=== PATIENT | male | born 1945 | race Caucasian/White ===

== ENCOUNTER 2021-03-23 20:24 | Emergency (ER) | payer MEDICARE, OTHER, SELFPAY ==
[2021-03-23 20:30] VITALS: BP 149/78; PULSE 77; RESP 18; TEMP 36.8; O2SAT 100
[2021-03-23] MEDS: diazePAM 5 MG TABLET PO (20:49)
[2021-03-23] MEDS: KETOROLAC 30 MG/ML VIAL IM (20:49)
--- NOTE | 2021-03-23 22:29 | ED_ITS ---
HPI - Back Pain/Injury General Chief Complaint: Back Pain/Injury Stated Complaint: back pain Time Seen by Provider: 03/23/21 20:41 Source: patient History of Present Illness HPI Narrative: 75-year-old gentleman with a history of glaucoma as his only significant medical issue presents with an acute exacerbation of his chronic back pain. He has had intermittent issues with his back since 1991 and has found ways to very efficiently avert acute exacerbations and has a daily routine to make sure that his back stays as flexible and pain-free as possible. He notes that about a week ago he was playing pickleball stretched and turned the wrong way and felt a twinge of pain low back right side that was a bit more lateral than he usually experiences. The same area has progressively gotten worse in terms of pain and at this point he is having episodes of pain that he describes as the worst that he has ever experienced and at times is severe enough that he has been actually unable to get out of bed. He describes no fevers, cough, chills. He has had no change to bowel or bladder habits. No abdominal pain no hematuria or dysuria. No history of IV drug use no history of recent spinal injections. He has had regular spinal imaging within the last year that has not suggested any significant metastatic or pathologic disease. He describes no rashes and does not have specific point tenderness over the lumbar spine. Related Data Home Medications Medication Instructions Recorded Confirmed ASPIRIN (Aspirin EC) 81 mg PO Q DAY #0 02/09/11 latanoprost 0.005 % eye drops 1 drp OPHTH Q DAY #0 02/09/11 (Xalatan) TIMOLOL MALEATE 1 drp OPHTH QDAY #0 05/03/11 Previous Rx's Medication Instructions Recorded diazepam 5 mg tablet 5 mg PO BID PRN #10 tab 03/23/21 oxycodone-acetaminophen 5 mg-325 1 tab PO Q6H PRN #12 tab 03/23/21 mg tablet Allergies Allergy/AdvReac Type Severity Reaction Status Date / Time No Known Drug Allergies Allergy Verified 03/23/21 21:11 Review of Systems Review of Systems Narrative: Remainder of complete review of systems is otherwise unremarkable except for that included in the HPI. Exam Narrative Exam Narrative: General: Alert appropriate in no acute distress Respiratory: Able to speak in full sentences, no obvious respiratory distress Skin: No obvious rashes, warm and dry Neurologic: Grossly intact no obvious asymmetries or abnormalities Psych: appropriate insight and affect, cooperative Spine: No skin changes, no point tenderness over lower thoracic or lumbar spine. No significant paraspinous muscle spasm. No flank pain. Initial Vital Signs Initial Vital Signs: Vital Signs Temperature 98.2 F 03/23/21 20:30 Pulse Rate 77 03/23/21 20:30 Respiratory Rate 18 03/23/21 20:30 Blood Pressure 149/78 H 03/23/21 20:30 Pulse Oximetry 100 03/23/21 20:30 Course Orders Ordered: Discontinued Medications Diazepam (Diazepam 5 Mg Tablet) 5 mg PO NOW ONE Stop: 03/23/21 20:42 Last Admin: 03/23/21 20:49 Dose: 5 mg Documented by: LINNEA Ketorolac Tromethamine (Ketorolac 30 Mg/Ml Vial) 30 mg IM NOW ONE Stop: 03/23/21 20:42 Last Admin: 03/23/21 20:49 Dose: 30 mg Documented by: LINNEA Oxycodone/Acetaminophen (Oxycodone/Apap 5/325 Prepack) 1 bottle MISC SEEINSTR ONE Stop: 03/23/21 22:43 Vital Signs Vital signs: Vital Signs - 8 hr 03/23/21 20:30 Temperature 98.2 F Pulse Rate 77 Respiratory Rate 18 Blood Pressure 149/78 H Pulse Oximetry 100 MDM - Back Pain/Injury MDM Narrative Medical decision making narrative: 75-year-old gentleman presents with acute musculoskeletal back pain without any ?red flags? for more significant pathology that would require any type of imaging at this time. He has found that Mobic and Robaxin have not been effective in controlling his pain. He received IM Toradol and oral diazepam in the emergency department with significant relief of his pain. At this time will have him continue with the Tylenol and Mobic as baseline pain control Valium is added as a muscle relaxant in the evening with instructions to discontinue his Robaxin as it has been ineffective. In the morning and early day if he wants to add Percocet for severe pain control he certainly can. We reviewed constipating side effects of this. Did recommend that he not mix the diazepam and Percocet as this can cause respiratory depression. Questions are answered patient is feeling significantly better is able to easily stand from the wheelchair and walk from the Department with minimal antalgic gait. He is safe for home discharge Discharge Plan Departure Patient Disposition: Home Clinical Impression: Musculoskeletal back pain Instructions: DI for Back Strain or Sprain Activity Restrictions/Additional Instructions: Thank you for coming in today I am sorry this back pain has been so debilitating. Fortunately, there are no concerning ?red flags? to suggest severe pathology. I suspect that this is simply pulled muscles and you will improve. Please continue the Tylenol as you are currently taking Use the Mobic as recently prescribed, this is a nonsteroidals pain medication Please discontinue the Robaxin. This is a muscle relaxer that does not seem to be effective for you I am going to give you a prescription for diazepam/Valium which is also a muscle relaxer and does seem to be more effective. This may be most effective for you in the evenings to help you sleep For pain beyond anything controlled by all of the above, you can use Percocet. It can mix with your current doses of Mobic and Tylenol. Please do not take Percocet within 3-4 hours of diazepam. The combination taken at the same time can cause you to stop breathing. If you have worsening pain, numbness or weakness, developed fevers or new or concerning symptoms, please feel free to return to the ER and I am happy to re- evaluate Prescriptions: New oxycodone-acetaminophen 5-325 mg tablet 1 tab PO Q6H PRN (Reason: pain) Qty: 12 RF: 0 diazepam 5 mg tablet 5 mg PO BID PRN (Reason: muscle spasm) Qty: 10 RF: 0 No Action latanoprost [Xalatan] 0.005 % drops 1 drp OPHTH Q DAY Qty: 0 RF: 0 ASPIRIN (Aspirin EC) 81 mg PO Q DAY Qty: 0 RF: 0 TIMOLOL MALEATE 1 drp OPHTH QDAY Qty: 0 RF: 0 Referrals: Александр Hidalgo MD [Primary Care Provider] -
[2021-03-23 22:54] VITALS: BP 136/70; PULSE 63; RESP 16; O2SAT 97
[2021-03-23] MEDS: OXYCODONE/APAP 5/325 PREPACK 1 BOTTLE MISC (22:54)
== END 2021-03-23 22:56 | disposition home or self-care (01) ==
PROVIDERS: Emergency Provider Emergency Medicine; PCP Family Medicine
DX: M54.5 Low back pain (principal)
CPT/HCPCS: 96372; 99283; J1885

== ENCOUNTER → 2022-02-25 08:34 | Outpatient (CLI) | payer MEDICARE, OTHER, SELFPAY ==
--- NOTE | 2022-02-25 | DI.MRI.S_ITS ---
PROCEDURE: MR LUMBAR SPINE WO CON INDICATIONS: Radiculopathy, lumbar region TECHNIQUE: Noncontrast sagittal T1 spin echo and T2 fast echo, sagittal STIR, and T2 fast spin echo through the lumbar spine. In cases with scoliosis, additional coronal T2 fast spin echo may be performed. COMPARISON: [facility] [place], CR, XR LUMBAR SPINE WITH OBLIQUES PLUS FLEXION EXTENSION, 02/21/2022, 9:16. FINDINGS: Image quality: Excellent. Alignment and Curvature: 5 lumbar type vertebral bodies are present by plain film. Loss of normal lumbar lordosis. 2 mm of retrolisthesis of L2 on L3. Bone Marrow: Marrow is of normal overall signal. No acute vertebral body compression fractures. Moderate reactive signal within the endplates adjacent to the L2-L3 intervertebral disc. Mild reactive signal adjacent to the remaining thoracolumbar intervertebral discs. Spinal Cord: Conus medullaris terminates at the mid L1 level. Visualized cord demonstrates normal signal and size. Paraspinous Soft Tissues: No paravertebral masses. T12-L1: Mild disc height loss and desiccation. No significant canal, or foraminal stenosis. L1-L2: Mild disc desiccation and diffuse disc bulge. Mild facet and ligamentum flavum hypertrophy. Mild canal stenosis. Mild bilateral foraminal stenosis. L2-L3: Moderate disc height loss and desiccation. Mild diffuse disc bulge/osteophyte. Mild facet and ligamentum flavum hypertrophy. Mild epidural lipomatosis. Mild canal stenosis. Mild bilateral foraminal stenosis. L3-L4: Moderate disc desiccation. Mild diffuse disc bulge. Mild facet and ligamentum flavum hypertrophy. Mild epidural lipomatosis. Mild canal stenosis. Mild bilateral foraminal stenosis. L4-L5: Moderate disc desiccation. Mild diffuse disc bulge. Moderate facet and ligamentum flavum hypertrophy. Mild canal stenosis. Mild bilateral foraminal stenosis. L5-S1: Mild bilateral facet hypertrophy. No significant canal, or foraminal stenosis. IMPRESSION: 1. Multilevel degenerative disc and facet disease, as well as ligamentum flavum hypertrophy and epidural lipomatosis. 2. Mild multilevel canal and foraminal stenoses. Dictated by: Sonia Mack M.D. on 02/27/2022 at 8:41 Approved by: Sonia Mack M.D. on 02/27/2022 at 8:42
== END ==
PROVIDERS: PCP Family Medicine; Referring Provider Physical Medicine & Rehabilitation Pain Medicine; Visit Provider Physical Medicine & Rehabilitation Pain Medicine
DX: M51.16 Intervertebral disc disorders with radiculopathy, lumbar region (principal); M48.061 Spinal stenosis, lumbar region without neurogenic claudication
CPT/HCPCS: 72148

== ENCOUNTER 2025-03-15 08:55 | Emergency (ER) | payer MEDICARE, OTHER, SELFPAY ==
[2025-03-15 09:05] VITALS: BP 140/87; PULSE 79; RESP 20; TEMP 36.9; O2SAT 96; BMI 27.2
--- NOTE | 2025-03-15 09:08 | DI.RAD.S_ITS ---
PROCEDURE: ORTHO-XR HIP BILAT W/PEL 3-4 INDICATIONS: Fall TECHNIQUE: For views of the hip were acquired. COMPARISON: None. FINDINGS: Bones: Right total hip prosthesis without evidence of hardware complication. No fractures or dislocations. No suspicious bony lesions. The visualized pelvic ring appears intact. Mild left hip osteoarthritic change with osseous prominence of the left femoral head neck junction. Soft tissues: No suspicious soft tissue calcifications or masses. IMPRESSION: No acute bony abnormality. Right hip prosthesis without evidence of hardware complication. Left mild osteoarthrosis with CAM morphology. Dictated by: Semaj Arzate M.D. on 03/15/2025 at 9:08 Approved by: Semaj Arzate M.D. on 03/15/2025 at 9:09
--- NOTE | 2025-03-15 09:08 | DI.RAD.S_ITS ---
PROCEDURE: XR LUMBAR SPINE 2-3V INDICATIONS: fall TECHNIQUE: 3 views of the lumbar spine were acquired. COMPARISON: None. FINDINGS: Bones: 5 [id number] vertebrae are present. There is normal bony alignment. No vertebral body compression fractures. No suspicious bony lesions. Large anterior osteophytes. Minimal disc height loss. Soft tissues: Overlying bowel gas pattern is normal. No suspicious soft tissue calcifications. Partially visualized hip prosthesis. IMPRESSION: No acute bony abnormality. Dictated by: Semaj Arzate M.D. on 03/15/2025 at 9:00 Approved by: Semaj Arzate M.D. on 03/15/2025 at 9:08
[2025-03-15 09:17] VITALS: PULSE 67; O2SAT 96
--- NOTE | 2025-03-15 09:22 | ED.FALL ---
HPI - Fall General Chief Complaint: Fall Stated Complaint: Fell and hurt back Time Seen by Provider: 03/15/25 08:55 Mode of arrival: Ambulatory History of Present Illness HPI Narrative: 79-year-old gentleman with a history of prior aortic dissection, hypertension, hyperlipidemia not currently on any blood thinners or aspirin was working in his yd slipped and fell down and gradually slowed he landed straight on his bottom yesterday was having neck strain type pain, does not describe hitting his head. He had difficulty sleeping due to pain, he did take some Tylenol last night. He complains of pain in the low back and right pelvic area. He has had a right hip replacement. He is able to stand but does note moderate pain with standing. No other complaints Related Data Home Medications ?Medication ?Instructions ?Recorded ?Confirmed ASPIRIN (Aspirin EC) 81 mg PO Q DAY ##0 02/09/11 latanoprost 0.005 % eye drops 1 drp OPHTH Q DAY ##0 02/09/11 (Xalatan) TIMOLOL MALEATE 1 drp OPHTH QDAY ##0 05/03/11 Previous Rx's ?Medication ?Instructions ?Recorded diazepam 5 mg tablet 5 mg PO BID PRN muscle spasm #10 03/23/21 tabs oxycodone-acetaminophen 5 mg-325 1 tab PO Q6H PRN pain #12 tabs 03/23/21 mg tablet Allergies Allergy/AdvReac Type Severity Reaction Status Date / Time No Known Drug Allergies Allergy Verified 03/15/25 09:05 Review of Systems Review of Systems Narrative: Pertinent positive and negative findings as per HPI Patient History Medical History Hyperlipidemia Hypertension Aortic dissection Social History Smoking Status: Never smoker Smoking Status: Never smoker Exam Initial Vital Signs Initial Vital Signs: Vital Signs Temperature 98.5 F 03/15/25 09:05 Pulse Rate 79 03/15/25 09:05 Respiratory Rate 20 03/15/25 09:05 Blood Pressure 140/87 03/15/25 09:05 Pulse Oximetry 96 03/15/25 09:05 Oxygen Delivery Method Room Air 03/15/25 09:05 General: Healthy appearing, in moderate pain but Able to give a complete and coherent history. Well-nourished well-developed HEENT: Moist mucous membranes, normal sclera with reactive pupils, Neck: No midline cervical spine tenderness. Minor bilateral trapezius muscle spasm to palpation Respiratory: Lungs are clear to auscultation,Full and symmetrical air movement Abdomen: Soft, nontender, no rebound or guarding, no flank pain Chest/spine:. There is no thoracic tenderness to palpation, no subcutaneous air. He has some minor L4-5 level tenderness midline and general tenderness into the right pelvis and hip without point abnormalities. He is able to bear weight with the pain Skin: Warm and dry, no rashes Neurologic: Grossly neurologically intact with no obvious asymmetries or abnormalities Extremities: no abrasions or contusions, no extremity injuries from the fall Psych: Cooperative, appropriate insight and affect Course Orders Ordered: ED Orders 03/15/25 09:08 ORTHO-XR hip bilat w/pel 3-4 Stat XR lumbar spine 2-3V Stat Discontinued Medications Acetaminophen (Acetaminophen 325 Mg Tablet) 325 mg PO NOW ONE Stop: 03/15/25 09:09 Last Admin: 03/15/25 09:40 Dose: 325 mg Documented By: UYEN Ibuprofen (Ibuprofen 400 Mg Tablet) 400 mg PO NOW ONE Stop: 03/15/25 09:09 Last Admin: 03/15/25 09:40 Dose: 400 mg Documented By: UYEN Vital Signs Vital signs: Vital Signs - 8 hr 03/15/25 09:05 03/15/25 09:17 Temperature 98.5 F Pulse Rate 79 67 Respiratory Rate 20 Blood Pressure 140/87 Pulse Oximetry 96 96 Oxygen Delivery Method Room Air MDM - Fall MDM Narrative Medical decision making narrative: 79-year-old gentleman with a history of chronic back pain and multiple chronic musculoskeletal issues who slipped and fell on a grassy slope landing on his bottom. Last night noticed neck pain today the neck pain is significantly improved this morning noticing low back pain into the right pelvis and hip. He had difficulty sleeping last night due to pain. He is mainly interested in making sure nothing is broken, he did use a dose of Robaxin last night which was minimally helpful X-rays of the lumbar spine, pelvis and bilateral hips do not show lumbar compression fractures, pelvic ring injury, periprosthetic fractures or other fracture. He responded well to the 400 mg of ibuprofen and 325 mg of Tylenol. Findings reviewed with him. He is able to get out of the chair with less pain than he was on arrival. He is now able to stand straight and bear weight. I did recommend that he consider getting a cane just to help with stability if he does happen to have a muscle spasms. He was not interested in any narcotic pain medication. Copies of his x-rays are given to him to share with his physician in [place]. Questions are answered he is safe for discharge Discharge Plan Departure Patient Disposition: Home Clinical Impression: Acute pain of right hip Fall Qualifiers: Encounter type: initial encounter Qualified Code(s): W19.XXXA - Unspecified fall, initial encounter Low back pain Qualifiers: Chronicity: acute Back pain laterality: midline Sciatica presence: without sciatica Qualified Code(s): M54.50 - Low back pain, unspecified Activity Restrictions/Additional Instructions: Thank you for coming in today It sounds like you had quite the slide down the slope yesterday. The x-rays of your lumbar spine, pelvis and pelvic ring as well as both hips are reassuring. No evidence of any fractures or complications with your hip prosthesis Using 400 mg of ibuprofen (2 [id number] pills) and 1 Tylenol every 6 hours can be very helpful in controlling pain. I would suggest buying a cane at 1 of the stores today just to help with stability. When your hurting as much as you currently are, another fall is a possibility and I would prefer that you avoid this. If you find that you are getting worse or develop any new symptoms, please feel free to return to the emergency department for further evaluation. Prescriptions: No Action latanoprost [Xalatan] 0.005 % drops 1 drp OPHTH Q DAY Qty: 0 ASPIRIN (Aspirin EC) 81 mg PO Q DAY Qty: 0 TIMOLOL MALEATE 1 drp OPHTH QDAY Qty: 0 oxycodone-acetaminophen 5-325 mg tablet 1 tab PO Q6H PRN (Reason: pain) Qty: 12 0RF diazepam 5 mg tablet 5 mg PO BID PRN (Reason: muscle spasm) Qty: 10 0RF Rx Instructions: Do not take within 3-4 hours of taking Percocet Referrals: Александр Hidalgo MD [Primary Care Provider, Medical] Stand Alone Forms: Patient Portal/API
[2025-03-15] MEDS: ACETAMINOPHEN 325 MG TABLET PO (09:40)
[2025-03-15] MEDS: IBUPROFEN 400 MG TABLET PO (09:40)
[2025-03-15 11:11] VITALS: BP 136/81; PULSE 60; O2SAT 96
== END 2025-03-15 11:17 | disposition home or self-care (01) ==
PROVIDERS: Emergency Provider Emergency Medicine; PCP Family Medicine
DX: M54.2 Cervicalgia (principal); M54.50 Low back pain, unspecified; M25.551 Pain in right hip; W18.30XA Fall on same level, unspecified, initial encounter; Z96.641 Presence of right artificial hip joint
CPT/HCPCS: 72100; 73522; 99283